=== PATIENT | female | born 1985 | race Two or more races ===

== ENCOUNTER 2021-12-22 15:00 | Outpatient (REF) | payer OTHER, SELFPAY ==
[2021-12-22 15:34] LABS: Binax Internal Control QC Valid; Binax Now Covid-19 Ag Negative (Negative)
== END 2021-12-22 15:01 | disposition home or self-care (01) ==
LOC: HO.HMGCLDS 15:00
PROVIDERS: Visit Provider Emergency Medicine
DX: Z20.822 Contact with and (suspected) exposure to COVID-19 (principal); J06.9 Acute upper respiratory infection, unspecified
CPT/HCPCS: 87811; C9803